=== PATIENT | female | born 1955 ===

== ENCOUNTER 2023-10-25 15:59 | Outpatient (CLI) | payer OTHER, SELFPAY ==
--- NOTE | ~2023-10-25 | CT_ITS ---
EXAMINATION: CT sinus wo con DATE: 10/25/2023 16:14 INDICATION: Nasal obstruction. TECHNIQUE: Computed tomography (CT) of the paranasal sinuses was performed without intravenous contra st. Iterative reconstruction technique was employed. The dose-length product was 280.89 mGy-cm. COMPARISON: None FINDINGS: The frontal sinuses are clear. There is mild mucosal thickening in the ethmoid, sphenoid, a nd bilateral maxillary sinuses. There is leftward deviation of the nasal septum. There is garcía bull jorge involving right middle turbinate. The ostiomeatal units are patent. IMPRESSION: 1. Mild mucosal thickening in the paranasal sinuses. 2. Leftward deviation of the nasal septum. Reviewed, dictated and finalized at location E. [facility]
== END 2023-10-25 16:00 ==
LOC: MICIMG 16:01
DX: J34.89 Other specified disorders of nose and nasal sinuses (principal); J34.2 Deviated nasal septum
CPT/HCPCS: 70486